=== PATIENT | male | born 1970 | race African-American/Black ===

== ENCOUNTER 2024-07-01 09:29 | Emergency (ER) | payer OTHER ==
[~2024-07-01] VITALS: Ht 170.2 cm; Wt 100.0 kg
[~2024-07-01 09:29] MED LIST: AMLO2.5T2 MT; ATOR10TA MT; COR12 PO; LOPHC2 MT
[2024-07-01] MEDS: HALOPERIDOL LACTATE 5MG/ML VIAL IM STA (09:47)
[2024-07-01 10:00] VITALS: BP 150/126; PULSE 89; RESP 16; O2SAT 98
[2024-07-01] MEDS: MIDAZOLAM HCL 2 MG/2 ML VIAL IM ONE (10:00)
[2024-07-01 10:27] LABS: BASOPHILS % 0.4 % (0.0-2.0); DIFFERENTIAL COMMENT 0; EOSINOPHILS % 0.8 % (0.0-5.0); HEMATOCRIT. 41.1 % (42.0-52.0); HEMOGLOBIN. 13.5 g/dL (14.0-18.0); LYMPHOCYTES % 41.3 % (20.0-50.0); MEAN CORPUSCULAR HEMOGLOBIN 33.4 pg (28.0-32.0); MEAN CORPUSCULAR HGB CONC 32.9 g/dL (31.0-37.0); MEAN CORPUSCULAR VOLUME 101.5 fL (80.0-94.0); MEAN PLATELET VOLUME 10.1 fl (7.4-10.4); MONOCYTES % 8.5 % (2.0-8.0); PLATELET 127 x1000/uL (130-400); RED BLOOD CELL COUNT 4.05 mill/uL (4.7-6.1); WHITE BLOOD COUNT 5.3 x1000/uL (4.5-11.0)
[2024-07-01 10:35] LABS: CHLORIDE 109 mEq/L (98-107); POTASSIUM 3.5 mEq/L (3.5-5.1); SODIUM 144 mEq/L (136-145)
[2024-07-01 10:36] LABS: CARBON DIOXIDE 27 mEq/L (21-32)
[2024-07-01 10:41] LABS: GLUCOSE 103 mg/dL (70-105); UREA NITROGEN BLOOD 10 mg/dL (9-23)
[2024-07-01 10:53] LABS: ETHANOL BLOOD 434 mg/dL (<10)
== END 2024-07-01 12:30 | disposition home or self-care (01) ==
LOC: ER 09:29
DX: F10.129 Alcohol abuse with intoxication, unspecified (principal); I10 Essential (primary) hypertension; Z86.73 Personal history of transient ischemic attack (TIA), and cerebral infarction without residual deficits; Y90.8 Blood alcohol level of 240 mg/100 ml or more
CPT/HCPCS: 80048; 80320; 85025; 36415; 96372; 99284; J1630; J2250; Z7610; G0480